=== PATIENT | female | born 1985 | race Caucasian/White ===

== ENCOUNTER → 2020-12-04 | Outpatient (CLI) | payer BC | LOC: LAB 12:05 | DX: M25.50 Pain in unspecified joint (principal); D89.9 Disorder involving the immune mechanism, unspecified; R76.8 Other specified abnormal immunological findings in serum | CPT/HCPCS: 36415; 83520; 86200 ==

== ENCOUNTER → 2021-02-09 | Outpatient (CLI) | payer BC | LOC: EXRD 10:33 | DX: S99.921A Unspecified injury of right foot, initial encounter (principal); M79.671 Pain in right foot; R60.0 Localized edema | CPT/HCPCS: 73630 ==